=== PATIENT | male | born 1945 ===

== ENCOUNTER 2016-11-26 08:37 | Outpatient (RCR) | payer OTHER | END 2016-11-27 | disposition home or self-care (01) | LOC: WCC 08:37 | DX: L97.523 Non-pressure chronic ulcer of other part of left foot with necrosis of muscle (principal); E11.621 Type 2 diabetes mellitus with foot ulcer; I70.25 Atherosclerosis of native arteries of other extremities with ulceration; I25.2 Old myocardial infarction | CPT/HCPCS: 82962; G0277; G0463 ==

== ENCOUNTER 2016-11-28 13:00 | Outpatient (RCR) | payer OTHER | END 2016-12-25 | disposition home or self-care (01) | LOC: WCC 13:00 | DX: L97.523 Non-pressure chronic ulcer of other part of left foot with necrosis of muscle (principal); E11.621 Type 2 diabetes mellitus with foot ulcer; I70.25 Atherosclerosis of native arteries of other extremities with ulceration; I51.9 Heart disease, unspecified; I25.2 Old myocardial infarction | CPT/HCPCS: 82962; G0277 ==

== ENCOUNTER 2016-12-26 10:25 | Outpatient (RCR) | payer OTHER | END 2017-01-25 | disposition home or self-care (01) | LOC: WCC 10:25 | DX: L97.523 Non-pressure chronic ulcer of other part of left foot with necrosis of muscle (principal); E11.621 Type 2 diabetes mellitus with foot ulcer; I70.25 Atherosclerosis of native arteries of other extremities with ulceration; I51.9 Heart disease, unspecified; I25.2 Old myocardial infarction | CPT/HCPCS: 82962; G0277 ==

== ENCOUNTER 2017-05-06 14:16 | Outpatient (RCR) | payer OTHER | END 2017-05-27 | disposition home or self-care (01) | LOC: WCC 14:16 | DX: L97.523 Non-pressure chronic ulcer of other part of left foot with necrosis of muscle (principal); E11.621 Type 2 diabetes mellitus with foot ulcer; Z95.0 Presence of cardiac pacemaker; Z90.89 Acquired absence of other organs; I51.9 Heart disease, unspecified; I25.2 Old myocardial infarction | CPT/HCPCS: 82962; G0277; G0463; 99204 ==

== ENCOUNTER 2017-05-28 13:00 | Outpatient (RCR) | payer OTHER | END 2017-06-27 | disposition home or self-care (01) | LOC: WCC 13:00 | DX: L97.523 Non-pressure chronic ulcer of other part of left foot with necrosis of muscle (principal); E11.621 Type 2 diabetes mellitus with foot ulcer; Z95.0 Presence of cardiac pacemaker; Z90.89 Acquired absence of other organs; Z95.5 Presence of coronary angioplasty implant and graft; I25.10 Atherosclerotic heart disease of native coronary artery without angina pectoris; I25.2 Old myocardial infarction | CPT/HCPCS: 82962; G0277 ==

== ENCOUNTER 2017-06-28 10:30 | Outpatient (RCR) | payer OTHER, MEDICAID | END 2017-07-27 | disposition home or self-care (01) | LOC: WCC 10:30 | DX: L97.523 Non-pressure chronic ulcer of other part of left foot with necrosis of muscle (principal); E11.621 Type 2 diabetes mellitus with foot ulcer; Z95.0 Presence of cardiac pacemaker; Z90.89 Acquired absence of other organs; I51.9 Heart disease, unspecified; I25.2 Old myocardial infarction; Z95.5 Presence of coronary angioplasty implant and graft | CPT/HCPCS: 82962; G0277; G0463 ==

== ENCOUNTER 2017-07-29 10:30 | Outpatient (RCR) | payer OTHER, MEDICAID | END 2017-08-27 | disposition home or self-care (01) | LOC: WCC 10:30 | DX: L97.523 Non-pressure chronic ulcer of other part of left foot with necrosis of muscle (principal); E11.621 Type 2 diabetes mellitus with foot ulcer; Z95.0 Presence of cardiac pacemaker; Z90.89 Acquired absence of other organs; Z95.5 Presence of coronary angioplasty implant and graft; I51.9 Heart disease, unspecified; I25.2 Old myocardial infarction | CPT/HCPCS: 82962; G0277 ==